=== PATIENT | female | born 1990 | race Caucasian/White ===

== ENCOUNTER 2016-12-03 07:41 | Emergency (ER) | payer MEDICAID ==
[~2016-12-03] VITALS: Ht 162.6 cm; Wt 65.8 kg
[2016-12-03 07:42] VITALS: BP 118/76
--- NOTE | 2016-12-03 07:55 | NUR ---
26/F C/O AWOKE WITH SOB AND SENSATION OF IRREGULAR HEARTBEAT--DIZZINESS. HX ANXIETY, DEPRESSION. DENIES N/V/D; SKIN IS PINK/WARM/DRY; AAOX4 WITH EVEN AND STEADY GAIT; LUNGS CLEAR BL; HR EVEN AND REGULAR WITH ARRYTHMIA; PT DENIES ANY FEVER, CP, OR COUGH AT THIS TIME; PATIENT STATES PAIN OF 0/10 AT THIS TIME; VSS; PATIENT POSITIONED FOR COMFORT; HOB ELEVATED; BEDRAILS UP X2; BED DOWN. ER MD MADE AWARE OF PT STATUS.
[2016-12-03 08:44] VITALS: BP 107/76
--- NOTE | 2016-12-03 08:44 | NUR ---
Patient discharged with v/s stable. Written and verbal after care instructions given and explained. Patient alert, oriented and verbalized understanding of instructions. Ambulatory with steady gait. All questions addressed prior to discharge. ID band removed. 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 Opportunity to ask questions provided and answered.
== END 2016-12-03 08:44 | disposition home or self-care (01) ==
LOC: MED 07:41
DX: R00.2 Palpitations (principal); R07.89 Other chest pain; R06.02 Shortness of breath; Z88.0 Allergy status to penicillin; F41.9 Anxiety disorder, unspecified; F32.9 Major depressive disorder, single episode, unspecified

== ENCOUNTER 2020-04-03 02:11 | Emergency (ER) | payer MEDICAID ==
[~2020-04-03] VITALS: Ht 162.6 cm; Wt 68.0 kg
[2020-04-03 02:20] VITALS: BP 161/85
--- NOTE | 2020-04-03 02:35 | NUR ---
EKG PERFORMED AT BEDSIDE
--- NOTE | 2020-04-03 03:05 | NUR ---
29 Y/O FEMALE C/O UPPER CHEST PRESSURE. PT STATES LEFT ARM NUMBNESS IS INTERMITTENT AND LEFT HAND HAS INTERMITTENT TINGLING. PT DENIES ANY TRAUMA. DENIES N/V/D; SKIN IS PINK/WARM/DRY; AAOX4 WITH EVEN AND STEADY GAIT; HR EVEN AND REGULAR; PT DENIES ANY FEVER, CP, SOB, OR COUGH AT THIS TIME; PATIENT STATES PAIN OF 0/10 AT THIS TIME; VSS; PATIENT POSITIONED FOR COMFORT; HOB ELEVATED; BEDRAILS UP X2; BED DOWN AND LOCKED. PMH: PANIC ATTACKS/ANXIETY ALLERG: PCN/ALCOHOL
[2020-04-03 03:14] LABS: ALBUMIN 3.8 g/dL (3.4-5.0); ANION GAP 11.5 (8-16); CARBON DIOXIDE 28.2 mmol/L (21-32); CREATININE 0.7 mg/dL (0.6-1.3); POTASSIUM 3.7 mmol/L (3.5-5.1); TOTAL BILIRUBIN 0.2 mg/dL (0.0-1.0)
[2020-04-03 03:18] LABS: PROTHROMBIN TIME 9.9 secs (10.8-13.4)
[2020-04-03 03:20] LABS: BASOPHILS % (AUTO) 0.5 % (0.0-2.0); EOSINOPHILS # (AUTO) 0.3 K/uL (0-0.4); EOSINOPHILS % (AUTO) 3.3 % (0.0-4.0); HEMATOCRIT 39.2 % (36-48); HEMOGLOBIN 13.1 g/dL (12.0-16.0); LYMPHOCYTES % (AUTO) 50.2 % (20.5-51.1); MEAN CORPUSCULAR HEMOGLOBIN 30 pg (27-31); MEAN CORPUSCULAR HGB CONC 33 g/dL (33-37); MEAN CORPUSCULAR VOLUME 90.9 fL (80-94); MONOCYTES # (AUTO) 0.5 K/uL (0.8-1.0); MONOCYTES % (AUTO) 5.8 % (1.7-9.3); NEUTROPHILS # (AUTO) 3.2 K/uL (1.8-7.7); NEUTROPHILS % (AUTO) 40.2 % (42.2-75.2); PLATELET COUNT (AUTO) 193 K/uL (140-450); RED BLOOD CELL COUNT(AUTO) 4.32 MIL/uL (4.20-5.40); RED CELL DISTRIBUTION WIDTH 12.7 % (11.6-13.7); WHITE BLOOD COUNT (AUTO) 7.9 K/uL (4.8-10.8)
--- NOTE | 2020-04-03 04:05 | NUR ---
PT RESTING IN BED IN POSITION OF COMFORT, BED LOW AND LOCKED, 2 SIDERAILS UP, VSS, WILL CONTINUE TO MONITOR.
--- NOTE | 2020-04-03 04:18 | NUR ---
AT BEDSIDE TALKING WITH PT
--- NOTE | 2020-04-03 04:36 | NUR ---
Patient discharged with v/s stable. Written and verbal after care instructions given and explained. Patient verbalized understanding. Ambulatory with steady gait. All questions addressed prior to discharge. Advised to follow up with PMD.
[2020-04-03 04:37] VITALS: BP 154/76
== END 2020-04-03 04:37 | disposition home or self-care (01) ==
LOC: MED 02:11
DX: R07.9 Chest pain, unspecified (principal); F41.9 Anxiety disorder, unspecified; Z88.0 Allergy status to penicillin
CPT/HCPCS: 36415; 71045; 80053; 84484; 85025; 85379; 85610; 85730; 93005; 99285; Q0092

== ENCOUNTER 2020-05-29 14:18 | Emergency (ER) | payer MEDICAID ==
[~2020-05-29] VITALS: Ht 162.6 cm; Wt 68.9 kg
[2020-05-29 14:25] VITALS: BP 131/90
--- NOTE | 2020-05-29 14:51 | NUR ---
29 Y/O FEMALE C/O HEAVY VAGINAL BLEEDING X2 DAYS. PT STATES SHE HAD HER CHILD 2 YEARS AGO, AND SINCE THEN, HAS NOT HAD A MENSTRUAL PERIOD. PT STATES SHE HAS BEEN SATURATING 1 PERIPAD EVERY HOUR. STATES SHES BEEN HAVING MEDIUM SIZED CLOTS. DENIES ANY DIZZINESS/WEAKNESS. PT STATES SHES FEELING NAUSEOUS, BUT NO VOMITING. PT IS ALSO EXPERIENCING DIARRHEA. NO COUGH/SOB REPORTED.
--- NOTE | 2020-05-29 15:07 | NUR ---
Dr. Handy is evaluating the patient at bedside.
[2020-05-29 16:04] LABS: BASOPHILS % (AUTO) 0.2 % (0.0-2.0); EOSINOPHILS # (AUTO) 0.1 K/uL (0-0.4); EOSINOPHILS % (AUTO) 1.1 % (0.0-4.0); HEMATOCRIT 41.2 % (36-48); HEMOGLOBIN 13.5 g/dL (12.0-16.0); LYMPHOCYTES # (AUTO) 2.4 K/uL (2.5-16.5); MEAN CORPUSCULAR HEMOGLOBIN 30 pg (27-31); MEAN CORPUSCULAR HGB CONC 33 g/dL (33-37); MEAN CORPUSCULAR VOLUME 91.6 fL (80-94); MONOCYTES # (AUTO) 0.3 K/uL (0.8-1.0); MONOCYTES % (AUTO) 3.3 % (1.7-9.3); NEUTROPHILS % (AUTO) 64.4 % (42.2-75.2); PLATELET COUNT (AUTO) 243 K/uL (140-450); RED BLOOD CELL COUNT(AUTO) 4.49 MIL/uL (4.20-5.40); RED CELL DISTRIBUTION WIDTH 12.7 % (11.6-13.7); WHITE BLOOD COUNT (AUTO) 7.8 K/uL (4.8-10.8)
[2020-05-29 16:16] LABS: ANION GAP 12.8 (8-16); CARBON DIOXIDE 27.9 mmol/L (21-32); CREATININE 0.7 mg/dL (0.6-1.3); POTASSIUM 3.7 mmol/L (3.5-5.1)
[2020-05-29 16:35] VITALS: BP 131/90
== END 2020-05-29 16:35 | disposition home or self-care (01) ==
LOC: MED 14:18
DX: N93.9 Abnormal uterine and vaginal bleeding, unspecified (principal); R42 Dizziness and giddiness; Z90.49 Acquired absence of other specified parts of digestive tract
CPT/HCPCS: 36415; 80048; 81002; 81025; 85025; 99283

== ENCOUNTER 2021-03-07 04:14 | Emergency (ER) | payer MEDICAID ==
[~2021-03-07] VITALS: Ht 162.6 cm; Wt 68.0 kg
[2021-03-07 04:15] VITALS: BP 139/98
--- NOTE | 2021-03-07 04:22 | NUR ---
Dr. Crawford examining patient.
--- NOTE | 2021-03-07 04:30 | NUR ---
30 Y/O FEMALE CAME TO THE ED C/O CHEST PAIN. PT STATES THAT SHE HAS TIGHT, PRESSURE CHEST PAIN OF 3/10 AND THAT IT IS RADIATING TO LEFT SHOULDER. PT DENIES ANY NAUSEA,VOMITTING, LIGHTHEADEDNESS. PT IS A&OX4, GCS 15. LUNGS CLEAR BL; HR EVEN AND REGULAR; PT DENIES ANY FEVER, CP, SOB, OR COUGH AT THIS TIME;VSS; PATIENT POSITIONED FOR COMFORT; HOB ELEVATED; BEDRAILS UP X2; BED DOWN. ER MD MADE AWARE OF PT STATUS. PMH: DENIES ALLERGY: PENICILLIN
[2021-03-07] MEDS: ACETAMINOPHEN EXTRA STRENGTH 500 MG TAB PO ONE (04:45)
[2021-03-07] MEDS: PANTOPRAZOLE 40 MG TABEC PO ONE (04:46)
[2021-03-07 05:00] VITALS: BP 139/98
== END 2021-03-07 05:00 | disposition home or self-care (01) ==
LOC: MED 04:14
DX: R07.89 Other chest pain (principal); Z88.0 Allergy status to penicillin
CPT/HCPCS: 71045; 93005; 99283